=== PATIENT | male | born 1970 | race African-American/Black ===

== ENCOUNTER 2020-07-07 05:13 | Emergency (ER) | payer MEDICARE, MEDICAID, SELFPAY ==
--- NOTE | ~2020-07-07 | XR_ITS ---
EXAMINATION: XR CHEST CLINICAL INFORMATION: Dyspnea COMPARISON: 12/12/2019 TECHNIQUE: Frontal view of the chest was obtained. FINDINGS: Normal symmetric lung volumes. No parenchymal consolidation. No pleural effusion. No pneumothorax. Cardiomediastinal silhouette and pulmonary vascularity are within normal limits. No acute osseous abnormalities. XR/XR chest 1V IMPRESSION: Unremarkable examination.
[2020-07-07 05:23] VITALS: BP 120/77; PULSE 65; RESP 18; TEMP 37; O2SAT 99; BMI 35.6
[2020-07-07 06:00] VITALS: PULSE 70; RESP 18; O2SAT 99
--- NOTE | 2020-07-07 06:10 | ECG_ITS ---
Test Reason : SOB Blood Pressure : / mmHG Vent. Rate : 060 BPM Atrial Rate : 060 BPM P-R Int : 150 ms QRS Dur : 096 ms QT Int : 378 ms P-R-T Axes : 020 001 002 degrees QTc Int : 378 ms Normal sinus rhythm Normal ECG When compared with ECG of 13-DEC-2019 00:30, Nonspecific T wave abnormality no longer evident in Lateral leads Referred By: Thea Dodson Electronically Signed By:MATTHEW CARMONA
[2020-07-07] MEDS: Albuterol Sulfate 90 MCG 8 GM INHALER 4 PUFF INHALE (06:21)
--- NOTE | 2020-07-07 06:35 | ED.SOB ---
HPI - SOB/Dyspnea General Chief Complaint: Dyspnea Stated Complaint: Asthma Time Seen by Provider: 07/07/20 06:09 Source: patient Mode of arrival: ambulatory History of Present Illness HPI Narrative: This is a 49-year-old male with history of asthma and presents with wheezing that started this morning and patient states that he attempted to take his maintenance inhaler without resolution of symptoms and then when he went into his car realize that his blue inhaler was there and was able to take a couple puffs with some mild improvement but he was concerned that may not be enough and wished to be evaluated here in the emergency room. Otherwise, he denies any fever, chills, palpitations, dyspnea on exertion, lower leg swelling, new cough. Related Data Allergies Allergy/AdvReac Type Severity Reaction Status Date / Time No Known Allergies Allergy Unverified 12/13/19 16:55 [No Known Allergies*] Review of Systems Review of Systems: Pertinent positives and negatives as stated in HPI 10 point review of systems is otherwise negative. [facility] Past Medical History Source: nursing notes reviewed Medical History Afib Asthma Chronic kidney disease (CKD) stage G3a/A2, moderately decreased glomerular filtration rate (GFR) between 45-59 mL/min/1.73 square meter and albuminuria creatinine ratio between 30-299 mg/g Gout Heart palpitations Hypertension Surgical History History of hip surgery Hx of tonsillectomy Social History Social History Alcohol intake: former Smoking Status: Former smoker Use of substances other than those prescribed or required for medical reasons: No Advance Directives: No Advance Directives Information Provided: No Physical Exam Vital Signs: Vital Signs: Last Vital Signs Temp 98.6 F 07/07/20 05:23 Pulse 57 07/07/20 07:01 Resp 19 07/07/20 07:01 BP 134/85 07/07/20 07:01 Pulse Ox 96 07/07/20 07:01 Body Mass Index 35.6 VITAL SIGNS: Reviewed. GENERAL: Well developed, well nourished, in no acute distress. HEAD: Normocephalic/atraumatic, EYES: PERRLA, EOMI NOSE: Nares patent bilateral OROPHARYNX: no oral lesions noted, posterior pharynx clear NECK: Supple, no adenopathy LUNGS: Minimal expiratory wheeze noted on the left, no tachypnea, and no increased work of breathing SpO2<96> CARDIOVASCULAR: Regular rate and rhythm without noted murmurs, no JVD or lower extremity edema. ABDOMEN: Soft, non-tender, non-distended with bowel sounds. NEUROLOGIC: Alert and oriented x 4. Course Course Course Narrative: This is a 49-year-old male with history and clinical presentation suggestive of possible mild asthma exacerbation, COVID-19 infection, and given patient's history of hypertension and heart conditions the possibility CHF. A fall investigations reviewed and although there is an elevation in BUN, creatinine has stayed the same. Otherwise, other findings are chronically stable. On re-evaluation patient reports improvement in dyspnea after receiving albuterol treatment. All findings were discussed with the patient at bedside and he was discharged home in stable condition. MDM - SOB/Dyspnea Lab Data Result diagrams: 07/07/20 06:23 07/07/20 06:23 Labs: Lab Results 07/07/20 07/07/20 07/07/20 Range/Units 06:23 06:23 06:23 WBC 5.7 (4.8-10.8) X10*3/uL RBC 4.19 L (4.60-5.80) X10*6/uL Hgb 12.4 L (14.0-18.0) g/dl Hct 37.9 L (42-52) % MCV 90.5 (80-98) fL MCH 29.6 (27.0-33.0) pg MCHC 32.7 (31.0-36.0) g/dl RDW 13.1 (11.0-16.0) % Plt Count 200 (160-400) X10*3/uL MPV 10.6 (9.4-12.4) fL Immature Gran % (Auto) 0.2 (0.0-0.4) % Neut % (Auto) 48.1 (45-73) % Lymph % (Auto) 37.7 (20-40) % [place] % (Auto) 8.1 (2-11) % Eos % (Auto) 5.5 H (0-4) % Baso % (Auto) 0.4 (0-2) % Lymph # (Auto) 2.1 (1.2-4.9) X10*3/uL [place] # (Auto) 0.5 (0.1-1.2) X10*3/uL Eos # (Auto) 0.3 (0.0-0.4) X10*3/uL Baso # (Auto) 0.0 (0.0-0.2) X10*3/uL Abs Immat Gran (auto) 0.01 (0.00-0.03) X10*3/uL Absolute Neuts (auto) 2.7 (2.0-8.3) X10*3/uL Absolute Nucleated RBC 0.000 (0.0-0.012) X10*3/uL Nucleated RBC % (auto) 0.0 (0.0-0.2) /100WBC Sodium 140 (135-145) mmol/L Potassium 4.3 (3.3-5.1) mmol/L Chloride 104 (96-108) mmol/L Carbon Dioxide 26 (22-29) mmol/L Anion Gap 14 (12-20) BUN 21 H (9-16) mg/dL Creatinine 1.73 H (0.5-1.4) mg/dL Estim Creat Clear Calc 72.3 Estimated GFR 43 Random Glucose 90 (60-115) mg/dL Calcium 9.0 (8.4-10.2) mg/dL Total Bilirubin 0.6 (0.0-1.0) mg/dL AST 19 (5-37) U/L ALT 19 (0-40) U/L Alkaline Phosphatase 62 (39-117) U/L Total Protein 6.6 (6.5-8.0) g/dL Albumin 3.8 (3.5-5.0) g/dL COVID-19 (FILIBERTO) Negative (Negative) COVID-19 Clin Com See Note ECG Data Attestation: I personally reviewed and interpreted this ECG as follows: Prior ECG tracings: available for review (12/13/2019 no acute changes on comparison) Interpretation: Normal sinus rhythm, HR -60, no evidence of acute ischemia, [place]/QRS/QTC are within normal limits. Discharge Plan Discharge Clinical Impression: Asthma with exacerbation Patient Disposition: Home, Self-Care Instructions: Asthma (ED), Wheezing (ED) Additional Instructions: Resume all home medications as prescribed. Follow-up with your primary care provider in the next 2-3 days for re-evaluation. Do not hesitate to return to the emergency department should you experience any acute worsening of your symptoms. Referrals: Nikia Montalvo DO [Primary Care Provider] - 2 days (Re-evaluation for asthma exacerbation and seen in the emergency department.)
[2020-07-07 06:36] LABS: Basophils Percent Auto 0.4 % (0-2); Eosinophils Absolute Auto 0.3 X10*3/uL (0.0-0.4); Eosinophils Percent Auto 5.5 % (0-4); Hematocrit 37.9 % (42-52); Hemoglobin 12.4 g/dl (14.0-18.0); Imm Gran Abs Auto 0.01 X10*3/uL (0.00-0.03); Imm Gran Pct Auto 0.2 % (0.0-0.4); Lymphocytes Absolute Auto 2.1 X10*3/uL (1.2-4.9); Lymphocytes Percent Auto 37.7 % (20-40); MANUAL DIFF FLAG NO; Mean Corpuscular HGB Conc 32.7 g/dl (31.0-36.0); Mean Corpuscular Hemoglobin 29.6 pg (27.0-33.0); Mean Corpuscular Volume 90.5 fL (80-98); Mean Platelet Volume 10.6 fL (9.4-12.4); Monocytes Absolute Auto 0.5 X10*3/uL (0.1-1.2); Monocytes Percent Auto 8.1 % (2-11); Neutrophils Absolute Auto 2.7 X10*3/uL (2.0-8.3); Neutrophils Percent Auto 48.1 % (45-73); Platelet Count 200 X10*3/uL (160-400); Red Blood Count 4.19 X10*6/uL (4.60-5.80); Red Cell Distribution Width 13.1 % (11.0-16.0); White Blood Count 5.7 X10*3/uL (4.8-10.8)
[2020-07-07 06:50] LABS: COVID-19 Test Negative (Negative)
[2020-07-07 06:59] LABS: Alanine Aminotransferase 19 U/L (0-40); Albumin Level 3.8 g/dL (3.5-5.0); Alkaline Phosphatase 62 U/L (39-117); Anion Gap 14 (12-20); Aspartate Amino Transferase 19 U/L (5-37); Bilirubin Total 0.6 mg/dL (0.0-1.0); Blood Urea Nitrogen 21 mg/dL (9-16); Carbon Dioxide 26 mmol/L (22-29); Chloride 104 mmol/L (96-108); Creatinine Clr Calc Pharmacy 72.3; Estimated Glomerular Filt Rate 43; Glucose Random 90 mg/dL (60-115); Potassium 4.3 mmol/L (3.3-5.1); Sodium 140 mmol/L (135-145); Total Protein 6.6 g/dL (6.5-8.0)
[2020-07-07 07:01] VITALS: BP 134/85; PULSE 57; RESP 19; O2SAT 96
[2020-07-07 07:52] LABS: B Type Natriuretic Peptide 19 pg/mL (<100)
[2020-07-07 09:00] VITALS: BP 134/78; PULSE 77; RESP 18; O2SAT 99
== END 2020-07-07 09:01 | disposition home or self-care (01) ==
PROVIDERS: Emergency Provider Student in an Organized Health Care Education/Training Program; PCP Internal Medicine
DX: J45.901 Unspecified asthma with (acute) exacerbation (principal); Z20.822 Contact with and (suspected) exposure to COVID-19; I48.91 Unspecified atrial fibrillation; I12.9 Hypertensive chronic kidney disease with stage 1 through stage 4 chronic kidney disease, or unspecified chronic kidney disease; N18.31 Chronic kidney disease, stage 3a
CPT/HCPCS: 36415; 71045; 80053; 83880; 85025; 87635; 93005; 99284

== ENCOUNTER 2020-07-25 03:06 | Emergency (ER) | payer MEDICARE, MEDICAID, SELFPAY ==
--- NOTE | 2020-07-25 03:23 | ECG_ITS ---
Test Reason : HTN Blood Pressure : / mmHG Vent. Rate : 062 BPM Atrial Rate : 062 BPM P-R Int : 136 ms QRS Dur : 086 ms QT Int : 394 ms P-R-T Axes : 017 -02 -13 degrees QTc Int : 399 ms Normal sinus rhythm Normal ECG When compared with ECG of 07-JUL-2020 06:20, No significant change was found Referred By: Emebr Lee Electronically Signed By:LAKEISHA MAJOR MD
--- NOTE | 2020-07-25 03:24 | ED.GENADULT ---
HPI - General Adult General Chief complaint: Anxiety Stated complaint: Hypertension & Anxiety Time Seen by Provider: 07/25/20 03:18 Source: patient Mode of arrival: EMS Limitations: no limitations History of Present Illness HPI narrative: Patient comes emergency room complaining of high blood pressure and a panic attack. Patient states prior to arrival, patient started feeling palpitations, then he checked his blood pressure, it was high when he checked it above 180, then he had a panic attack. Patient states he has had panic attacks in the past but never this bad. At this time, patient denies chest pain, no shortness of breath, no abdominal pain, states he feels very anxious. Patient states that he takes amlodipine and spironolactone for his blood pressure, he did not take his medication this morning. Related Data Previous Rx's Medication Instructions Recorded hydroxyzine HCl 50 mg PO TID PRN #10 tab 07/25/20 Allergies Allergy/AdvReac Type Severity Reaction Status Date / Time No Known Allergies Allergy Unverified 12/13/19 16:55 [No Known Allergies*] Review of Systems Review of Systems: Constitutional : No Weight loss, No Fever, No Chills, No Night Sweats, No Fatigue, No Malaise ENT/Mouth : No Hearing loss, No Ear Pain, No Nasal Congestion, No Sinus Pain, No Hoarseness, No sore throat, No Rhinorrhea, No Swallowing Difficulty Eyes: No Eye Pain, No Swelling, No Redness, No Foreign Body, No Discharge, No Vision Changes Cardiovascular : No Chest Pain, No SOB, No Dyspnea on Exertion, No Orthopnea, No Edema, complaining of Palpitations Respiratory : No Cough, No Sputum, No Wheezing, No Smoke Exposure, No Dyspnea Gastrointestinal : No Nausea, No Vomiting, No Diarrhea, No Constipation, No abdominal Pain, No Hematochezia, No Melena Genitourinary : no irregular bleeding, No Dysuria, No Urinary Frequency, No Hematuria, No Urinary Incontinence, No Urgency, No Flank Pain, No Urinary Flow Changes, No Hesitancy Musculoskeletal : No joint pain, No Myalgias, No Joint Swelling Skin : No Skin Lesions, No rash Neuro : No Weakness, No Numbness, No Paresthesias, No Loss of Consciousness, No Dizziness, No Headache Psych : Complaining of anxiety and a panic attack, No Depression, No SI/HI/AH/VH, No Social Issues, Heme/Lymph: No Bruising, No Bleeding,No Lymphadenopathy Endocrine : No Polyuria, No Polydipsia, No Temperature Intolerance [facility] Past Medical History Medical History Afib Asthma Chronic kidney disease (CKD) stage G3a/A2, moderately decreased glomerular filtration rate (GFR) between 45-59 mL/min/1.73 square meter and albuminuria creatinine ratio between 30-299 mg/g Gout Heart palpitations Hypertension Surgical History History of hip surgery Hx of tonsillectomy Social History Social History Alcohol intake: former Smoking Status: Former smoker Advance Directives: No Advance Directives Information Provided: No Physical Exam Vital Signs: Vital Signs: Last Vital Signs Temp 98.7 F 07/25/20 03:28 Pulse 99 07/25/20 03:28 Resp 16 07/25/20 03:28 BP 180/84 H 07/25/20 03:28 Pulse Ox 100 07/25/20 03:28 Body Mass Index 37.3 Appearance: Alert. Oriented X3. No acute distress. Anxious Eyes: Pupils equal, round and reactive to light. ENT: Pharynx normal. Neck: Normal inspection. Neck supple. No lymph nodes noted. No crepitus CVS: Normal heart rate and rhythm. Pulses normal. Normal S1 and S2 Respiratory: No respiratory distress. Breath sounds normal. No Wheezing. No rales Abdomen: Soft and nontender. No rigidity. No distention. good BS x4 Skin: Skin warm and dry. Normal skin color. Normal skin turgor. Extremities: No lower extremity edema. No lower extremity edema. No Lacerations. No Rash Neuro: Oriented X 3. No motor deficit. No sensory deficit. Moving all extermities. No slurred speech. Course Course Course Narrative: Patient has history of atrial fibrillation, however patient is not on blood thinners, states he has had AFib only twice, he converted back to sinus rhythm with no intervention. Patient received 2 mg of Ativan, blood pressure improved to 148/72. Medical Decision Making Lab Data Result diagrams: 07/25/20 03:56 07/25/20 03:56 Labs: Lab Results 07/25/20 07/25/20 07/25/20 Range/Units 03:56 03:56 03:56 WBC 7.4 (4.8-10.8) X10*3/uL RBC 4.15 L (4.60-5.80) X10*6/uL Hgb 12.2 L (14.0-18.0) g/dl Hct 37.7 L (42-52) % MCV 90.8 (80-98) fL MCH 29.4 (27.0-33.0) pg MCHC 32.4 (31.0-36.0) g/dl RDW 13.2 (11.0-16.0) % Plt Count 322 D (160-400) X10*3/uL MPV 10.0 (9.4-12.4) fL Immature Gran % (Auto) 0.5 H (0.0-0.4) % Neut % (Auto) 40.3 L (45-73) % Lymph % (Auto) 47.6 H (20-40) % [place] % (Auto) 8.0 (2-11) % Eos % (Auto) 3.2 (0-4) % Baso % (Auto) 0.4 (0-2) % Lymph # (Auto) 3.5 (1.2-4.9) X10*3/uL [place] # (Auto) 0.6 (0.1-1.2) X10*3/uL Eos # (Auto) 0.2 (0.0-0.4) X10*3/uL Baso # (Auto) 0.0 (0.0-0.2) X10*3/uL Abs Immat Gran (auto) 0.04 H (0.00-0.03) X10*3/uL Absolute Neuts (auto) 3.0 (2.0-8.3) X10*3/uL Absolute Nucleated RBC 0.000 (0.0-0.012) X10*3/uL Nucleated RBC % (auto) 0.0 (0.0-0.2) /100WBC Sodium 141 (135-145) mmol/L Potassium 3.8 (3.3-5.1) mmol/L Chloride 106 (96-108) mmol/L Carbon Dioxide 24 (22-29) mmol/L Anion Gap 15 (12-20) BUN 18 H (9-16) mg/dL Creatinine 1.37 (0.5-1.4) mg/dL Estim Creat Clear Calc 91.0 Estimated GFR 56 Random Glucose 92 (60-115) mg/dL Calcium 9.0 (8.4-10.2) mg/dL Troponin I High Sens 3.8 (<3.5-35.0) ng/L ECG Data Attestation: I personally reviewed and interpreted this ECG as follows: (Normal sinus rhythm, heart rate 62, no ST segment depression or elevation, nonspecific T-wave inversion in lead 3, QTC 399) Discharge Plan Discharge Clinical Impression: Acute anxiety Patient Disposition: Home, Self-Care Instructions: Panic Attack (ED) Additional Instructions: Please follow-up with your primary care physician tomorrow. If you have any worsening or new symptoms, please return to the emergency room or call 911 Prescriptions: New hydroxyzine HCl 50 mg tablet 50 mg PO TID PRN (Reason: nausea and vomiting) Qty: 10 RF: 0
[2020-07-25 03:28] VITALS: BP 180/84; PULSE 99; RESP 16; TEMP 37.1; O2SAT 100; BMI 37.3
[2020-07-25] MEDS: LORazepam 1 MG TABLET 2 MG PO (03:38)
[2020-07-25 04:01] LABS: MANUAL DIFF FLAG NO
[2020-07-25 04:06] LABS: Basophils Percent Auto 0.4 % (0-2); Eosinophils Absolute Auto 0.2 X10*3/uL (0.0-0.4); Eosinophils Percent Auto 3.2 % (0-4); Hematocrit 37.7 % (42-52); Hemoglobin 12.2 g/dl (14.0-18.0); Imm Gran Abs Auto 0.04 X10*3/uL (0.00-0.03); Imm Gran Pct Auto 0.5 % (0.0-0.4); Lymphocytes Absolute Auto 3.5 X10*3/uL (1.2-4.9); Lymphocytes Percent Auto 47.6 % (20-40); Mean Corpuscular HGB Conc 32.4 g/dl (31.0-36.0); Mean Corpuscular Hemoglobin 29.4 pg (27.0-33.0); Mean Corpuscular Volume 90.8 fL (80-98); Monocytes Absolute Auto 0.6 X10*3/uL (0.1-1.2); Neutrophils Percent Auto 40.3 % (45-73); Platelet Count 322 X10*3/uL (160-400); Red Blood Count 4.15 X10*6/uL (4.60-5.80); Red Cell Distribution Width 13.2 % (11.0-16.0); White Blood Count 7.4 X10*3/uL (4.8-10.8)
[2020-07-25 04:24] LABS: Anion Gap 15 (12-20); Blood Urea Nitrogen 18 mg/dL (9-16); Carbon Dioxide 24 mmol/L (22-29); Chloride 106 mmol/L (96-108); Estimated Glomerular Filt Rate 56; Glucose Random 92 mg/dL (60-115); Potassium 3.8 mmol/L (3.3-5.1); Sodium 141 mmol/L (135-145)
[2020-07-25 04:33] LABS: Troponin-I High Sensitivity 3.8 ng/L (<3.5-35.0)
== END 2020-07-25 06:42 | disposition home or self-care (01) ==
PROVIDERS: Emergency Provider Emergency Medicine
DX: F41.9 Anxiety disorder, unspecified (principal); I12.9 Hypertensive chronic kidney disease with stage 1 through stage 4 chronic kidney disease, or unspecified chronic kidney disease; N18.31 Chronic kidney disease, stage 3a; I48.91 Unspecified atrial fibrillation; J45.909 Unspecified asthma, uncomplicated; Z79.899 Other long term (current) drug therapy; Z87.891 Personal history of nicotine dependence
CPT/HCPCS: 36415; 80048; 84484; 85025; 93005; 99283

== ENCOUNTER 2021-01-12 04:25 | Emergency (ER) | payer MEDICARE, MEDICAID, SELFPAY ==
--- NOTE | 2021-01-12 04:34 | ECG_ITS ---
Test Reason : WEAKNESS Blood Pressure : / mmHG Vent. Rate : 071 BPM Atrial Rate : 071 BPM P-R Int : 184 ms QRS Dur : 086 ms QT Int : 370 ms P-R-T Axes : 039 003 -09 degrees QTc Int : 402 ms Normal sinus rhythm Nonspecific T wave abnormality Inferior leads Borderline ECG No significant changes seen Referred By: Thea Dodson Electronically Signed By:NAMITA CORONADO MD
[2021-01-12 04:36] VITALS: BP 154/94; BP 156/91; PULSE 72; PULSE 80; RESP 18; TEMP 36.9; O2SAT 100; BMI 34.5
--- NOTE | 2021-01-12 05:01 | ED.GENADULT ---
HPI - General Adult General Chief complaint: General Medical Stated complaint: AWOKE WITH HEART PALPITATIONS, DIZZY NOW Time Seen by Provider: 01/12/21 04:33 Source: patient Mode of arrival: EMS History of Present Illness HPI narrative: 50-year-old male who is brought in by EMS for awakening with heart palpitations but denies any chest pain or shortness of breath but states that he felt lightheaded during palpitations. Patient states that his symptoms have since resolved and he denies any recent shortness of breath, wheeze, fevers, chills and states he got both COVID-19 vaccines in July. Patient denies any recent travel, calf pain/swelling. Related Data Previous Rx's Medication Instructions Recorded hydroxyzine HCl 50 mg tablet 50 mg PO TID PRN #10 tab 07/25/20 Allergies Allergy/AdvReac Type Severity Reaction Status Date / Time No Known Allergies Allergy Unverified 12/13/19 16:55 [No Known Allergies*] Review of Systems Review of Systems: Pertinent positives and negatives as stated in HPI 10 point review of systems is otherwise negative. PMFSH Past Medical History Source: nursing notes reviewed Medical History Afib Asthma Chronic kidney disease (CKD) stage G3a/A2, moderately decreased glomerular filtration rate (GFR) between 45-59 mL/min/1.73 square meter and albuminuria creatinine ratio between 30-299 mg/g Gout Heart palpitations Hypertension Surgical History History of hip surgery Hx of tonsillectomy Social History Social History Alcohol intake: former Advance Directives: No Advance Directives Information Provided: No Physical Exam Vital Signs: Vital Signs: Last Vital Signs Temp 98.5 F 01/12/21 04:36 Pulse 72 01/12/21 04:36 Resp 18 01/12/21 04:36 BP 156/91 H 01/12/21 04:36 Pulse Ox 100 01/12/21 04:36 Body Mass Index 34.5 VITAL SIGNS: Reviewed. GENERAL: Well developed, well nourished, in no acute distress. HEAD: Normocephalic/atraumatic EYES: PERRLA, EOMI OROPHARYNX: no oral lesions noted, posterior pharynx clear LUNGS: Normal breath sounds. No adventitious sounds or accessory muscle use. SpO2<100> CARDIOVASCULAR: Regular rate and rhythm without noted murmurs, no JVD or lower extremity edema. ABDOMEN: Soft, non-tender, non-distended with bowel sounds. MUSCULOSKELETAL: No tenderness, deformities, or effusions noted on gross inspection. EXTREMITIES: No cyanosis, clubbing or edema. SKIN: Inspection of the skin reveals no rashes NEUROLOGIC: Alert and oriented x 4. Strength and sensation to light touch were grossly intact x 4. Course Course Course Narrative: 50-year-old male with history and clinical presentation suggestive of acute anxiety attack but also possibly LASHELL. There is no evidence to suggest asthma exacerbation and no history or clinical findings to suggest pneumonia, cardiac ischemia, PE. Will obtain COVID testing and EKG. Review of all investigations negative for acute findings and patient was otherwise discharged in stable condition. Medical Decision Making Lab Data Labs: Lab Results 01/12/21 Range/Units 05:05 Coronavirus (PCR) NEGATIVE (Negative) Influenza Type A (PCR) NEGATIVE (Negative) Influenza Type B (PCR) NEGATIVE (Negative) RSV RNA Qual (PCR) NEGATIVE (Negative) ECG Data Attestation: I personally reviewed and interpreted this ECG as follows: Prior ECG tracings: available for review (07/25/2020 no acute changes on comparison) Interpretation: Normal sinus rhythm, HR-71, no STEMI, HI/QRS/QTC are within normal limits. Discharge Plan Discharge Clinical Impression: Heart palpitations, Anxiety Patient Disposition: Home, Self-Care Instructions: Heart Palpitations (ED), Anxiety (ED) Additional Instructions: Recommend following up with your primary care provider to discuss the possibility of LASHELL (obstructive sleep apnea) as a possible reason for you being awakened with palpitations. Return to the ER for acute worsening of symptoms. Prescriptions: No Action hydroxyzine HCl 50 mg tablet 50 mg PO TID PRN (Reason: nausea and vomiting) Qty: 10 RF: 0
[2021-01-12 05:49] LABS: Influenza A PCR NEGATIVE (Negative); Influenza B PCR NEGATIVE (Negative); Resp Syncy Virus RNA Qual PCR NEGATIVE (Negative); SARS COV2 PCR INHOUSE NEGATIVE (Negative)
[2021-01-12] MEDS: hydrOXYzine HCL 25 MG TABLET PO (06:28)
== END 2021-01-12 06:50 | disposition home or self-care (01) ==
PROVIDERS: Emergency Provider Student in an Organized Health Care Education/Training Program
DX: R42 Dizziness and giddiness (principal); F41.1 Generalized anxiety disorder; F43.0 Acute stress reaction; Z79.899 Other long term (current) drug therapy; Z20.822 Contact with and (suspected) exposure to COVID-19
CPT/HCPCS: 0241U; 36415; 93005; 99283

== ENCOUNTER 2021-02-24 02:12 | Emergency (ER) | payer MEDICARE, MEDICAID, SELFPAY ==
--- NOTE | 2021-02-24 | ECG_ITS ---
Test Reason : CP Blood Pressure : / mmHG Vent. Rate : 072 BPM Atrial Rate : 072 BPM P-R Int : 162 ms QRS Dur : 088 ms QT Int : 362 ms P-R-T Axes : 062 012 -11 degrees QTc Int : 396 ms Normal sinus rhythm Normal ECG When compared with ECG of 12-JAN-2021 04:59, Nonspecific T wave abnormality no longer evident in Anterior leads Referred By: Generic ED Physician Electronically Signed By:NAMITA CORONADO MD
--- NOTE | ~2021-02-24 | XR_ITS ---
EXAMINATION: XR CHEST CLINICAL INFORMATION: Chest pain. COMPARISON: Chest radiograph 07/07/2020. TECHNIQUE: 2 views of the chest were obtained. FINDINGS: Multiple external artifacts overlie the thorax. Normal appearance of the cardiomediastinal structures. No effusions or pneumothoraces. Lungs clear. Normal pattern of pulmonary vasculature. Mild convex rightward curvature of the lower thoracic spine. XR/XR chest 2V IMPRESSION: -No cardiopulmonary abnormalities. Lungs clear. -Mild convex rightward scoliosis of the thoracic spine.
[2021-02-24 03:01] LABS: MANUAL DIFF FLAG NO
[2021-02-24 03:03] LABS: Basophils Percent Auto 0.4 % (0-2); Eosinophils Absolute Auto 0.3 X10*3/uL (0.0-0.4); Eosinophils Percent Auto 5.6 % (0-4); Hematocrit 41.8 % (42.0-52.0); Hemoglobin 13.9 g/dl (14.0-18.0); Imm Gran Abs Auto 0.01 X10*3/uL (0.00-0.03); Imm Gran Pct Auto 0.2 % (0.0-0.4); Lymphocytes Absolute Auto 2.8 X10*3/uL (1.2-4.9); Lymphocytes Percent Auto 51.7 % (20-40); Mean Corpuscular HGB Conc 33.3 g/dl (31.0-36.0); Mean Corpuscular Volume 90.1 fL (80.0-98.0); Mean Platelet Volume 10.3 fL (9.4-12.4); Monocytes Absolute Auto 0.4 X10*3/uL (0.1-1.2); Neutrophils Absolute Auto 1.8 x10*3/uL (2.0-8.3); Neutrophils Percent Auto 34.1 % (45-73); Platelet Count 212 X10*3/uL (160-400); Red Blood Count 4.64 X10*6/uL (4.60-5.80); White Blood Count 5.4 X10*3/uL (4.8-10.8)
[2021-02-24 03:17] LABS: COVID-19 Test Negative (Negative); IDNOW Serial# 9DD0AD1C
[2021-02-24 03:19] LABS: Alanine Aminotransferase 14 U/L (0-40); Albumin Level 4.1 g/dL (3.5-5.0); Alkaline Phosphatase 53 U/L (39-117); Anion Gap 14 (12-20); Aspartate Amino Transferase 17 U/L (5-37); Bilirubin Total 0.7 mg/dL (0.0-1.0); Blood Urea Nitrogen 16 mg/dL (9-16); Calcium 9.3 mg/dL (8.4-10.2); Carbon Dioxide 25 mmol/L (22-29); Chloride 108 mmol/L (96-108); Estimated Glomerular Filt Rate 42; Glucose Random 97 mg/dL (60-115); Sodium 143 mmol/L (135-145); Total Protein 6.8 g/dL (6.5-8.0)
[2021-02-24 03:26] LABS: Troponin-I High Sensitivity 3.9 ng/L (<3.5-35.0)
[2021-02-24 03:32] VITALS: BP 158/99; PULSE 66; RESP 18; TEMP 36.7; O2SAT 100; BMI 33.6
[2021-02-24 03:45] VITALS: BP 158/99; PULSE 66; RESP 23; TEMP 37.1; O2SAT 99
[2021-02-24 04:33] VITALS: BP 127/82; PULSE 65; RESP 17; O2SAT 99
--- NOTE | 2021-02-24 06:30 | ED_ITS ---
HPI - Chest Pain General Chief Complaint: Chest Pain Stated Complaint: chest pain Time Seen by Provider: 02/24/21 06:30 Source: patient Mode of arrival: ambulatory History of Present Illness HPI narrative: 50-year-old male presentation for midsternal chest pain that he describes as sharp in nature that began just prior to arrival here in the emergency room and was not associated with diaphoresis, nausea, shortness of breath, dizziness and he denies radiation into the back/ neck/arm. Patient states it does get worse with deep inspiration but does not seem to be associated with position change or arm movement. Related Data Previous Rx's Medication Instructions Recorded hydroxyzine HCl 50 mg tablet 50 mg PO TID PRN #10 tab 07/25/20 Allergies Allergy/AdvReac Type Severity Reaction Status Date / Time No Known Allergies Allergy Unverified 12/13/19 16:55 [No Known Allergies*] Review of Systems Review of Systems: Pertinent positives and negatives as stated in HPI 10 point review PMFSH Past Medical History Source: nursing notes reviewed Medical History Afib Asthma Chronic kidney disease (CKD) stage G3a/A2, moderately decreased glomerular filtration rate (GFR) between 45-59 mL/min/1.73 square meter and albuminuria creatinine ratio between 30-299 mg/g Gout Heart palpitations Hypertension Surgical History History of hip surgery Hx of tonsillectomy Social History Social History Alcohol intake: former Advance Directives: No Advance Directives Information Provided: No Physical Exam Vital Signs: Vital Signs: Last Vital Signs Temp 98.7 F 02/24/21 03:45 Pulse 65 02/24/21 04:33 Resp 17 02/24/21 04:33 BP 127/82 02/24/21 04:33 Pulse Ox 99 02/24/21 04:33 Body Mass Index 33.6 VITAL SIGNS: Reviewed. GENERAL: Well developed, well nourished, in no acute distress. HEAD: Normocephalic/atraumatic OROPHARYNX: no oral lesions noted, posterior pharynx clear NECK: Supple, no adenopathy LUNGS: Normal breath sounds. No adventitious sounds or accessory muscle use. SpO2<99>, no chest wall tenderness CARDIOVASCULAR: Regular rate and rhythm without noted murmurs, no JVD or lower extremity edema. ABDOMEN: Soft, non-tender, non-distended with bowel sounds. MUSCULOSKELETAL: No tenderness, deformities, or effusions noted on gross inspection. EXTREMITIES: No cyanosis, clubbing or edema. SKIN: Inspection of the skin reveals no rashes NEUROLOGIC: Alert and oriented x 4. Strength and sensation to light touch were grossly intact x 4. Course Course Course Narrative: 50-year-old male with history and clinical presentation suggestive of possible GERD, but low clinical suspicion for cardiac ischemia and PE. HEART Score: 2, low risk Review of all investigations without acute findings and serial troponins although detectable are not elevated. Patient was provided with a GI cocktail and states that he is feeling better. He is otherwise discharged home in stable condition. MDM - Chest Pain Lab Data Result diagrams: 02/24/21 02:56 02/24/21 02:56 Labs: Lab Results 02/24/21 02/24/21 02/24/21 Range/Units 02:56 02:56 02:56 WBC 5.4 (4.8-10.8) X10*3/uL RBC 4.64 (4.60-5.80) X10*6/uL Hgb 13.9 L (14.0-18.0) g/dl Hct 41.8 L (42.0-52.0) % MCV 90.1 (80.0-98.0) fL MCH 30.0 (27.0-33.0) pg MCHC 33.3 (31.0-36.0) g/dl RDW 13.0 (11.0-16.0) % Plt Count 212 (160-400) X10*3/uL MPV 10.3 (9.4-12.4) fL Immature Gran % (Auto) 0.2 (0.0-0.4) % Neut % (Auto) 34.1 L (45-73) % Lymph % (Auto) 51.7 H (20-40) % [place] % (Auto) 8.0 (2-11) % Eos % (Auto) 5.6 H (0-4) % Baso % (Auto) 0.4 (0-2) % Lymph # (Auto) 2.8 (1.2-4.9) X10*3/uL [place] # (Auto) 0.4 (0.1-1.2) X10*3/uL Eos # (Auto) 0.3 (0.0-0.4) X10*3/uL Baso # (Auto) 0.0 (0.0-0.2) X10*3/uL Abs Immat Gran (auto) 0.01 (0.00-0.03) X10*3/uL Absolute Neuts (auto) 1.8 L (2.0-8.3) x10*3/uL Absolute Nucleated RBC 0.000 (0.0-0.012) X10*3/uL Nucleated RBC % (auto) 0.0 (0.0-0.2) /100WBC Sodium 143 (135-145) mmol/L Potassium 4.0 (3.3-5.1) mmol/L Chloride 108 (96-108) mmol/L Carbon Dioxide 25 (22-29) mmol/L Anion Gap 14 (12-20) BUN 16 (9-16) mg/dL Creatinine 1.76 H (0.5-1.4) mg/dL Estim Creat Clear Calc TNP Estimated GFR 42 Random Glucose 97 (60-115) mg/dL Calcium 9.3 (8.4-10.2) mg/dL Total Bilirubin 0.7 (0.0-1.0) mg/dL AST 17 (5-37) U/L ALT 14 (0-40) U/L Alkaline Phosphatase 53 (39-117) U/L Troponin I High Sens 3.9 (<3.5-35.0) ng/L Total Protein 6.8 (6.5-8.0) g/dL Albumin 4.1 (3.5-5.0) g/dL COVID-19 (FILIBERTO) (Negative) COVID-19 Clin Com 02/24/21 02/24/21 Range/Units 02:56 07:37 WBC (4.8-10.8) X10*3/uL RBC (4.60-5.80) X10*6/uL Hgb (14.0-18.0) g/dl Hct (42.0-52.0) % MCV (80.0-98.0) fL MCH (27.0-33.0) pg MCHC (31.0-36.0) g/dl RDW (11.0-16.0) % Plt Count (160-400) X10*3/uL MPV (9.4-12.4) fL Immature Gran % (Auto) (0.0-0.4) % Neut % (Auto) (45-73) % Lymph % (Auto) (20-40) % [place] % (Auto) (2-11) % Eos % (Auto) (0-4) % Baso % (Auto) (0-2) % Lymph # (Auto) (1.2-4.9) X10*3/uL [place] # (Auto) (0.1-1.2) X10*3/uL Eos # (Auto) (0.0-0.4) X10*3/uL Baso # (Auto) (0.0-0.2) X10*3/uL Abs Immat Gran (auto) (0.00-0.03) X10*3/uL Absolute Neuts (auto) (2.0-8.3) x10*3/uL Absolute Nucleated RBC (0.0-0.012) X10*3/uL Nucleated RBC % (auto) (0.0-0.2) /100WBC Sodium (135-145) mmol/L Potassium (3.3-5.1) mmol/L Chloride (96-108) mmol/L Carbon Dioxide (22-29) mmol/L Anion Gap (12-20) BUN (9-16) mg/dL Creatinine (0.5-1.4) mg/dL Estim Creat Clear Calc Estimated GFR Random Glucose (60-115) mg/dL Calcium (8.4-10.2) mg/dL Total Bilirubin (0.0-1.0) mg/dL AST (5-37) U/L ALT (0-40) U/L Alkaline Phosphatase (39-117) U/L Troponin I High Sens 5.1 (<3.5-35.0) ng/L Total Protein (6.5-8.0) g/dL Albumin (3.5-5.0) g/dL COVID-19 (FILIBERTO) Negative (Negative) COVID-19 Clin Com See Note ECG Data ECG #1: Attestation: I personally reviewed and interpreted this ECG as follows: Prior ECG tracings: available for review ( 01/12/2021 no acute changes on comparison) Interpretation: normal sinus rhythm, HR - 72, no STEMI, [place]/QRS / QTC are within normal limits. Discharge Plan Discharge Clinical Impression: Atypical chest pain Patient Disposition: Home, Self-Care Instructions: Chest Pain (ED), Gastroesophageal Reflux Disease (ED), Diet for Stomach Ulcers and Gastritis (ED) Additional Instructions: 1. Follow-up with your primary care provider and discuss further workup and evaluation as indicated. Possibly Cardiology. 2. Continue to utilize [id number] medications such as Mylanta and/or Zantac for any acid reflux you may be experiencing. Return to the ER for worsening symptoms. Prescriptions: No Action hydroxyzine HCl 50 mg tablet 50 mg PO TID PRN (Reason: nausea and vomiting) Qty: 10 RF: 0
[2021-02-24 08:12] LABS: Troponin-I High Sensitivity 5.1 ng/L (<3.5-35.0)
[2021-02-24] MEDS: Magnesium Hydrox/Alum Hydrox 30 ML ORAL.SUSP PO (08:36)
[2021-02-24] MEDS: Lidocaine HCl Viscous 2 % 15 ML SOLUTION 10 ML MUCOUS MEM (08:36)
[2021-02-24 08:39] VITALS: BP 135/87; PULSE 57; RESP 16; O2SAT 96
--- NOTE | 2021-02-24 08:47 | PC.NURSE ---
pt alert and oriented. vss. pt c/o 07/05 epigastric pain that he reports as feeling different from anything he experienced in the past. pt states he has gerds and gets frequent heartburn but this felt different wich was concerning to him. pt is now medically cleared for discharge. discharge summary given and explained to pt. no complaints.
== END 2021-02-24 08:51 | disposition home or self-care (01) ==
PROVIDERS: Emergency Provider Student in an Organized Health Care Education/Training Program
DX: R07.89 Other chest pain (principal); Z20.822 Contact with and (suspected) exposure to COVID-19; I48.91 Unspecified atrial fibrillation; I12.9 Hypertensive chronic kidney disease with stage 1 through stage 4 chronic kidney disease, or unspecified chronic kidney disease; N18.30 Chronic kidney disease, stage 3 unspecified
CPT/HCPCS: 36415; 71046; 80053; 84484; 85025; 87635; 93005; 99284

== ENCOUNTER 2021-06-16 01:16 | Emergency (ER) | payer MEDICARE, MEDICAID, SELFPAY ==
--- NOTE | 2021-06-16 | ECG_ITS ---
Test Reason : ANXIETY Blood Pressure : / mmHG Vent. Rate : 085 BPM Atrial Rate : 085 BPM P-R Int : 176 ms QRS Dur : 098 ms QT Int : 346 ms P-R-T Axes : 051 -03 -09 degrees QTc Int : 411 ms Normal sinus rhythm Nonspecific T wave abnormality Abnormal ECG When compared with ECG of 24-FEB-2021 02:17, Non-specific change in ST segment in Lateral leads Nonspecific T wave abnormality now evident in Anterior leads Referred By: Generic ED Physician Electronically Signed By:Jeffrey Santiago
[2021-06-16 01:24] VITALS: BP 119/75; BP 132/97; PULSE 82; PULSE 87; RESP 18; TEMP 36.5; O2SAT 100; O2SAT 97; BMI 34.9
[2021-06-16 02:21] LABS: COVID-19 Test Negative (Negative)
== END 2021-06-16 04:59 | disposition left against medical advice (07) ==
PROVIDERS: Emergency Provider Emergency Medicine
DX: F41.9 Anxiety disorder, unspecified (principal); Z20.822 Contact with and (suspected) exposure to COVID-19; R94.31 Abnormal electrocardiogram [ECG] [EKG]
CPT/HCPCS: 87635; 93005; 99283

== ENCOUNTER 2024-09-12 21:57 | Emergency (ER) | payer MEDICARE, MEDICAID, SELFPAY ==
--- NOTE | 2024-09-12 | ECG_ITS ---
Test Reason : CHEST FLUTTERS Blood Pressure : */* mmHG Vent. Rate : 76 BPM Atrial Rate : 76 BPM P-R Int : 156 ms QRS Dur : 86 ms QT Int : 362 ms P-R-T Axes : 48 -2 -9 degrees QTcB Int : 407 ms Normal sinus rhythm Normal ECG When compared with ECG of 16-Jun-2021 01:51, No significant change was found Referred By: Generic ED Physician Electronically Signed By: Jeffrey Santiago
[2024-09-12 22:05] VITALS: PULSE 79; RESP 15; TEMP 37.1; O2SAT 96; BMI 41.3
[2024-09-12 22:12] VITALS: BP 184/95; PULSE 84; O2SAT 95
[2024-09-12 22:37] LABS: MANUAL DIFF FLAG NO
[2024-09-12 22:41] LABS: Basophils Percent Auto 0.5 % (0-2); Eosinophils Absolute Auto 0.2 X10*3/uL (0.0-0.4); Eosinophils Percent Auto 3.8 % (0-4); Hematocrit 41.2 % (42.0-52.0); Hemoglobin 14.1 g/dl (14.0-18.0); Imm Gran Abs Auto 0.01 X10*3/uL (0.00-0.03); Imm Gran Pct Auto 0.2 % (0.0-0.4); Lymphocytes Percent Auto 47.1 % (20-40); Mean Corpuscular HGB Conc 34.2 g/dl (31.0-36.0); Mean Corpuscular Volume 87.7 fL (80.0-98.0); Mean Platelet Volume 9.9 fL (9.4-12.4); Monocytes Absolute Auto 0.5 X10*3/uL (0.1-1.2); Monocytes Percent Auto 7.5 % (2-11); Neutrophils Absolute Auto 2.6 x10*3/uL (2.0-8.3); Neutrophils Percent Auto 40.9 % (45-73); Platelet Count 253 X10*3/uL (160-400); Red Cell Distribution Width 12.8 % (11.0-16.0); White Blood Count 6.3 X10*3/uL (4.8-10.8)
[2024-09-12 23:03] LABS: Alanine Aminotransferase 12 U/L (0-40); Albumin Level 4.1 g/dL (3.5-5.0); Alkaline Phosphatase 64 U/L (39-117); Anion Gap 13 (12-20); Aspartate Amino Transferase 22 U/L (5-37); Bilirubin Total 0.5 mg/dL (0.0-1.0); Blood Urea Nitrogen 16 mg/dL (9-16); Calcium 9.3 mg/dL (8.4-10.2); Carbon Dioxide 26 mmol/L (22-29); Chloride 106 mmol/L (96-108); Creatinine Clr Calc Pharmacy 75.8; Estimated Glomerular Filt Rate 44; Glucose Random 99 mg/dL (60-115); Potassium 3.9 mmol/L (3.3-5.1); Sodium 141 mmol/L (135-145); Total Protein 7.1 g/dL (6.5-8.0); Troponin-I High Sensitivity 3.8 ng/L (<3.5-35.0)
[2024-09-13 00:22] VITALS: BP 148/94; PULSE 72; RESP 18; TEMP 36.6; O2SAT 97
[2024-09-13 02:28] VITALS: BP 139/97; PULSE 70; RESP 16; O2SAT 99
--- NOTE | 2024-09-13 04:21 | ED_ITS ---
HPI - Arrhythmia/Palpitations General Chief Complaint: Arrhythmia/Palpitations Stated Complaint: chest palpitations Time Seen by Provider: 09/13/24 04:04 Source: patient Mode of arrival: ambulatory Limitations: no limitations History of Present Illness ED Provider: Dr. Ember Lee HPI narrative: patient comes to the emergency room complaining of palpitations. Patient states that he felt his heart racing whenever prior to arrival. Patient states that in the past he has had atrial fibrillation, but it did not feel like this. Patient denies any chest pain or shortness of breath. Patient is not sure if this was anxiety which he has had in the past as well. At this time, patient states that he feels completely back to baseline. 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 Related Data Previous Rx's ?Medication ?Instructions ?Recorded hydroxyzine HCl 50 mg tablet 50 mg PO TID PRN nausea a nd 07/25/20 vomiting #10 tabs Allergies Allergy/AdvReac Type Severity Reaction Status Date / Time leflunomide AdvReac Unknown Verified 09/12/24 22:11 losartan AdvReac Unknown Verified 09/12/24 22:11 prednisone AdvReac Hallucinati Verified 09/12/24 22:11 ons Review of Systems 2 Review of Systems: Constitutional : No Weight loss, No Fever, No Chills, No Night Sweats, No Fatigue, No Malaise ENT/Mouth : No Hearing loss, No Ear Pain, No Nasal Congestion, No Sinus Pain, No Hoarseness, No sore throat, No Rhinorrhea, No Swallowing Difficulty Eyes: No Eye Pain, No Swelling, No Redness, No Foreign Body, No Discharge, No Vision Changes Cardiovascular : No Chest Pain, No SOB, No Dyspnea on Exertion, No Orthopnea, No Edema, Complaining of Palpitations Respiratory : No Cough, No Sputum, No Wheezing, No Smoke Exposure, No Dyspnea Gastrointestinal : No Nausea, No Vomiting, No Diarrhea, No Constipation, No abdominal Pain, No Hematochezia, No Melena Genitourinary : no irregular bleeding, No Dysuria, No Urinary Frequency, No Hematuria, No Urinary Incontinence, No Urgency, No Flank Pain, No Urinary Flow Changes, No Hesitancy Musculoskeletal : No joint pain, No Myalgias, No Joint Swelling Skin : No Skin Lesions, No rash Neuro : No Weakness, No Numbness, No Paresthesias, No Loss of Consciousness, No Dizziness, No Headache Psych : No Anxiety/Panic, No Depression, No SI/HI/AH/VH, No Social Issues, Heme/Lymph: No Bruising, No Bleeding,No Lymphadenopathy Endocrine : No Polyuria, No Polydipsia, No Temperature Intolerance [facility] Past Medical History Medical History Gout Heart palpitations Afib Hypertension Chronic kidney disease (CKD) stage G3a/A2, moderately decreased glomerular filtration rate (GFR) between 45-59 mL/min/1.73 square meter and albuminuria creatinine ratio between 30-299 mg/g Asthma Surgical History History of hip surgery Hx of tonsillectomy Social History Social History Alcohol intake: former Smoked in Last 30 Days: No Use of substances other than those prescribed or required for medical reasons: No Advance Directives: No Advance Directives Information Provided: No Do you have a plan to hurt others: No Plan Physical Exam 2 Vital Signs: Vital Signs: Last Vital Signs Temp 97.9 F 09/13/24 00:22 Pulse 70 09/13/24 02:28 Resp 16 09/13/24 02:28 BP 139/97 H 09/13/24 02:28 Pulse Ox 99 09/13/24 02:28 O2 Del Method Room Air 09/13/24 02:28 BMI result Body Mass Index 41.3 Const: Other: Appearance: Alert. Oriented X3. No acute distress. well-appearing Eyes: Pupils equal, round and reactive to light. ENT: Pharynx normal. Neck: Normal inspection. Neck supple. No lymph nodes noted. No crepitus CVS: Normal heart rate and rhythm. Pulses normal. Normal S1 and S2 Respiratory: No respiratory distress. Breath sounds normal. No Wheezing. No rales Abdomen: Soft and nontender. No rigidity. No distention. Skin: Skin warm and dry. Normal skin color. Normal skin turgor. Extremities: No lower extremity edema. No Lacerations. No Rash Neuro: Oriented X 3. No motor deficit. No sensory deficit. Moving all extremities. No slurred speech. CN 2 through 12 grossly intact Psych: calm, cooperative, normal affect Course Course Course Narrative: patient comes in complaining of palpitations. Patient states he is not sure if this was his AFib acting up but she has had in the past or if it was anxiety. Earlier this year, he has a thorough cardiac workup including Holter monitor evaluation and echocardiogram a cardiac stress test. At this time, patient is asymptomatic, palpitations have resolved Medical Decision Making Medical Decision Making [facility] Narrative: my interpretation of EKG: Normal sinus rhythm, heart rate 76, no ST segment depression or elevation, nonspecific T-wave inversion in lead 3, QTC my interpretation of labs: No significant abnormality in patient's hematology, chemistry at baseline including a creatinine of 1.64, troponin negative. Patient has been on the monitor for several hours, no arrhythmias were captured. Patient is asymptomatic, vitals stable. Patient feels well to be discharged home. 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 09/12/24 22:30 09/12/24 22:30 Labs: Lab Results 09/12/24 Range/Units 22:30 WBC 6.3 (4.8-10.8) X10*3/uL RBC 4.70 (4.60-5.80) X10*6/uL Hgb 14.1 (14.0-18.0) g/dl Hct 41.2 L (42.0-52.0) % MCV 87.7 (80.0-98.0) fL MCH 30.0 (27.0-33.0) pg MCHC 34.2 (31.0-36.0) g/dl RDW 12.8 (11.0-16.0) % Plt Count 253 (160-400) X10*3/uL MPV 9.9 (9.4-12.4) fL Immature Gran % (Auto) 0.2 (0.0-0.4) % Neut % (Auto) 40.9 L (45-73) % Lymph % (Auto) 47.1 H (20-40) % [place] % (Auto) 7.5 (2-11) % Eos % (Auto) 3.8 (0-4) % Baso % (Auto) 0.5 (0-2) % Lymph # (Auto) 3.0 (1.2-4.9) X10*3/uL [place] # (Auto) 0.5 (0.1-1.2) X10*3/uL Eos # (Auto) 0.2 (0.0-0.4) X10*3/uL Baso # (Auto) 0.0 (0.0-0.2) X10*3/uL Abs Immat Gran (auto) 0.01 (0.00-0.03) X10*3/uL Absolute Neuts (auto) 2.6 (2.0-8.3) x10*3/uL Absolute Nucleated RBC 0.000 (0.0-0.012) X10*3/uL Nucleated RBC % (auto) 0.0 (0.0-0.2) /100WBC Sodium 141 (135-145) mmol/L Potassium 3.9 (3.3-5.1) mmol/L Chloride 106 (96-108) mmol/L Carbon Dioxide 26 (22-29) mmol/L Anion Gap 13 (12-20) BUN 16 (9-16) mg/dL Creatinine 1.64 H (0.5-1.4) mg/dL Estim Creat Clear Calc 75.8 Estimated GFR 44 Random Glucose 99 (60-115) mg/dL Calcium 9.3 (8.4-10.2) mg/dL Total Bilirubin 0.5 (0.0-1.0) mg/dL AST 22 (5-37) U/L ALT 12 (0-40) U/L Alkaline Phosphatase 64 (39-117) U/L Troponin I High Sens 3.8 (<3.5-35.0) ng/L Total Protein 7.1 (6.5-8.0) g/dL Albumin 4.1 (3.5-5.0) g/dL Independent Interpretation I performed an independent interpretation of an: EKG Discharge Plan Discharge Clinical Impression: Palpitations Patient Disposition: Home, Self-Care Instructions: Heart Palpitations (ED) Additional Instructions: Please follow-up with your primary care physician tomorrow. If you have any worsening or new symptoms, please return to the emergency room or call 911 Prescriptions: No Action hydroxyzine HCl 50 mg tablet 50 mg PO TID PRN (Reason: nausea and vomiting) Qty: 10 0RF Rx Instructions: P.r.n. anxiety Print Language: Pashto
[2024-09-13 05:12] VITALS: BP 139/97; PULSE 70; RESP 16; TEMP 36.1; O2SAT 99
== END 2024-09-13 05:16 | disposition home or self-care (01) ==
PROVIDERS: Emergency Provider Emergency Medicine
DX: R00.2 Palpitations (principal); J45.909 Unspecified asthma, uncomplicated; I48.91 Unspecified atrial fibrillation
CPT/HCPCS: 36415; 80053; 84484; 85025; 93005; 99283; 99285

== ENCOUNTER → 2024-09-12 22:18 | Outpatient (BNV) | payer MEDICARE, MEDICAID, SELFPAY | PROVIDERS: Emergency Provider Emergency Medicine; Visit Provider Internal Medicine Cardiovascular Disease | DX: R00.2 Palpitations (principal) | CPT/HCPCS: 93010 ==